=== PATIENT | female | born 1990 | race Caucasian/White ===

== ENCOUNTER → 2021-11-28 | Outpatient (CLI) | payer OTHER ==
[~2021-11-28] MED LIST: ATIV1TAB10 PO; BUPR1SUB5 SL; BUPR8SUB SL; CVS1CAP2 PO; CYAN500T14 PO; FLUO20CA22 PO; GABA600T4 PO; GABA800T4 PO; HOME MED LIST COMPLETE! XX SCH; HYDR50TA70 PO; IRON65TA2 PO; LIDOCAINE 1% MDV 20ML VIAL As Ordered ONE; SERO1TAB PO; VITA100093 PO; VITALIQ60 MC
[2021-11-28 11:40] VITALS: BP 98/58
== END ==
LOC: M IRPRO 07:39
PROVIDERS: ATTEND Internal Medicine Hematology & Oncology
DX: C34.31 Malignant neoplasm of lower lobe, right bronchus or lung (principal); J95.811 Postprocedural pneumothorax

== ENCOUNTER 2023-09-03 07:13 | Day surgery (SDC) | payer MEDICARE, OTHER ==
[~2023-09-03] VITALS: Ht 170.2 cm; Wt 66.2 kg
[~2023-09-03 07:13] MED LIST changes: +ALBU8.5H; +EPCL1TAB PO; -HOME MED LIST COMPLETE! XX SCH; -LIDOCAINE 1% MDV 20ML VIAL As Ordered ONE; +LR 1,000 ML IV SCH; +QUET100T2 PO; +[UNRECOGNIZED DRUG - CODE] PO
[2023-09-03] MEDS ORDERED: LIDOCAINE 2% 100MG/5ML SDV (FOR ANES.) As Ordered ONE (07:52)
[2023-09-03] MEDS ORDERED: ROCURONIUM BROMIDE 50MG/5ML VIAL As Ordered ONE (07:52)
[2023-09-03] MEDS ORDERED: ONDANSETRON 4MG 2ML VIAL As Ordered ONE (07:52)
[2023-09-03] MEDS ORDERED: SUGAMMADEX SODIUM 500 MG/5 ML VIAL (BRIDION) As Ordered ONE (07:52)
[2023-09-03] MEDS ORDERED: propofoL 200 MG/20 ML VIAL As Ordered ONE (07:52)
[2023-09-03] MEDS ORDERED: fentaNYL 100 MCG/2 ML INJECTION As Ordered ONE (07:56)
[2023-09-03] MEDS ORDERED: MIDAZOLAM INJ 2MG/2ML VIAL As Ordered ONE (07:56)
[2023-09-03] MEDS: LIDOCAINE PRES-FREE 2% 10ML AMP INH ONE (08:16)
[2023-09-03] MEDS: ALBUTEROL SULFATE 2.5MG/0.5ML INH NEB SOLN INH ONE (08:16)
[2023-09-03] MEDS: THROMBIN 5,000 UNITS VIAL As Ordered ONE (08:27)
[2023-09-03] MEDS: EPINEPHrine 1MG/10ML SYRINGE 1.5IN As Ordered ONE (08:27)
[2023-09-03] MEDS: CETACAINE SPRAY 5GM As Ordered ONE (08:51)
[2023-09-03] MEDS ORDERED: ACETAMINOPHEN 1000MG 100ML IV BAG As Ordered ONE (08:52)
[2023-09-03] MEDS ORDERED: fentaNYL 100 MCG/2 ML INJECTION IV PRN (09:30)
[2023-09-03] MEDS ORDERED: ONDANSETRON 4MG 2ML VIAL IV PRN (09:30)
[2023-09-03] MEDS ORDERED: MORPHINE 2 MG/ML 1ML VIAL IV PRN (09:30)
[2023-09-03] MEDS ORDERED: oxyCODONE 5MG TAB PO PRN (09:30)
[2023-09-03 10:16] VITALS: BP 111/66; TEMP 97.6; O2SAT 100
== END 2023-09-03 10:35 | disposition home or self-care (01) ==
LOC: M SDC 07:13
PROVIDERS: ATTEND Internal Medicine Critical Care Medicine
DX: C34.01 Malignant neoplasm of right main bronchus (principal); C77.0 Secondary and unspecified malignant neoplasm of lymph nodes of head, face and neck; K58.9 Irritable bowel syndrome, unspecified; Z79.899 Other long term (current) drug therapy; Z85.3 Personal history of malignant neoplasm of breast; F17.210 Nicotine dependence, cigarettes, uncomplicated; Z86.19 Personal history of other infectious and parasitic diseases; Z90.11 Acquired absence of right breast and nipple
CPT/HCPCS: 31652; 71045; 81025; 88173; 88305; J0131; J1100; J2250; J2405; J3010